=== PATIENT | male | born 1985 | race Caucasian/White ===

== ENCOUNTER 2021-02-16 04:56 | Outpatient (CLI) | payer MEDICAID, SELFPAY ==
--- NOTE | 2021-02-16 09:00 | RT.EKG_ITS ---
APPROVED REPORT Exam: Resting ECG Reason for Exam: HIGH RISK MEDICATION Patient Location: O HR:57 bpm ECG Measurements Heart Rate 57 AXIS VA 154 P 13 QRSd 89 QRS 120 QT 482 T 53 QTc 469 Conclusion Sinus bradycardia...rate< 60 Right axis deviation...QRS axis (100,269) Consider RVH
== END 2021-02-16 04:57 | disposition home or self-care (01) ==
PROVIDERS: Visit Provider Family Medicine
DX: Z79.899 Other long term (current) drug therapy (principal)
CPT/HCPCS: 93005; 93010